=== PATIENT | male | born 1970 | race Caucasian/White ===

== ENCOUNTER 2020-07-08 12:03 | Emergency (ER) | payer SELFPAY ==
--- NOTE | 2020-07-08 12:22 | EDM.PDOC ---
ED HPI GENERAL MEDICAL PROBLEM - General Chief Complaint: Lower Extremity Injury/Pain Stated Complaint: SWOLLEN L FOOT Time Seen by Provider: 07/08/20 12:21 Source of Information: Reports: Patient History Limitations: Reports: No Limitations - History of Present Illness INITIAL COMMENTS - FREE TEXT/NARRATIVE: 50-year-old male presents to the ED with painful left great toe. It came on overnight. He states he had gout in his right great toe about 3 weeks ago which is still hurting badly but not as bad as it was initially. Patient states he got very ill from indomethacin tablets that they put him on very dizzy lightheaded and could not tolerate them. He is therefore currently on no medications.History suggest that he is likely got hypertrophic cardiomyopathy and is seeing cardiology in the near future for repeat echocardiogram on his heart. It is so bad that he cannot tolerate anything touching the left great toe even the sheets of the bedding. Any movement of the MTP joint causes exquisite severe pain. He states he drinks only the occasional beer.Does eat meat almost on a daily basis. Onset: Sudden Onset Date: 07/08/20 (Awoke with swollen red left great) Duration: Hour(s): ( toe and the first MTP joint this morning.), Getting Worse Location: Reports: Lower Extremity, Left (Left) Quality: Reports: Ache ( first MTP joint), Burning, Sharp, Stabbing, Throbbing Severity: Severe Improves with: Reports: Rest (10 out of 10) Worsens with: Reports: Movement Context: Denies: Activity, Exercise, Lifting (Movement or attempt to walk or put a shoe on hurts badly.), Sick Contact, Trauma, Other Associated Symptoms: Reports: Other (He had gout attack in his right first MTP joint 3 weeks ago which remains very swollen with skin sloughing off of the toe due to the severe edema that it causes.) 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 Left Foot Pain Score (Numeric/FACES): 10 - Related Data Allergies Allergy/AdvReac Type Severity Reaction Status Date / Time azithromycin Allergy Rash Verified 07/08/20 12:19 Home Meds: Home Meds Colchicine 0.6 mg PO Q1H #3 capsule 07/08/20 [Rx] Diclofenac Sodium [Voltaren] 75 mg PO BIDMEALS #20 tab.cr 07/08/20 [Rx] oxyCODONE HCl/Acetaminophen [Percocet 5-325 mg Tablet] 1 - 2 each PO Q4H PRN #15 tablet 07/08/20 [Rx] predniSONE [Prednisone] 20 mg PO BID #12 tablet 07/08/20 [Rx] Past Medical History Cardiovascular History: Reports: Other (See Below) (Has some heart problems which for which she is seeing cardiology. The history suggest that what he is describing is hypertrophic cardiomyopathy.) Musculoskeletal History: Reports: Gout Social & Family History - Living Situation & Occupation Living situation: Reports: Single Occupation: Employed Review of Systems - Review of Systems Review Of Systems: See Below Constitutional: Denies: Chills, Diaphoresis, Fever, Weakness, Other Eyes: Reports: No Symptoms Ears: Reports: No Symptoms Nose: Reports: No Symptoms Mouth/Throat: Reports: No Symptoms Respiratory: Reports: Shortness of Breath (Mostly on exertion) Cardiovascular: Reports: Other (Currently being worked up by cardiology for what sounds like developing hypertrophic cardiomyopathy.) GI/Abdominal: Reports: No Symptoms Genitourinary: Reports: No Symptoms Musculoskeletal: Reports: Back Pain, Other (Pain in both great toes in the first MTP joints due to gout. Right started 3 weeks ago left started overnight.) Skin: Reports: Other (And is sloughing off of the right first MTP joint due to severe swelling) Neurological: Reports: No Symptoms ( from 3 weeks ago.) Psychiatric: Reports: No Symptoms ED EXAM, GENERAL - Physical Exam Exam: See Below Exam Limited By: No Limitations General Appearance: Alert, WD/WN, Mild Distress, Other (Temperature is 37.1 degrees with a heart rate of 103. Respiratory is 18 with O2 sats of 98% room air BP 134/89.) Eye Exam: Bilateral Eye: Normal Inspection, PERRL (No scleral icterus or blepharal pallor.) Ears: Normal TMs Throat/Mouth: Normal Inspection, Normal Lips, Normal Teeth, Normal Oropharynx Neck: Normal Inspection, Supple, Non-Tender, Full Range of Motion. No: Carotid Bruit, Lymphadenopathy (L), Lymphadenopathy (R) Respiratory/Chest: No Respiratory Distress, Lungs Clear, No Accessory Muscle Us e, Chest Non-Tender Cardiovascular: Normal Peripheral Pulses, Regular Rate, Rhythm, No Edema, No Gallop, No Murmur, No Rub Peripheral Pulses: 3+: Carotid (L), Carotid (R), Radial (L), Radial (R) Extremities: Other (Patient has marked redness and swelling over the first MTP joint of his right great toe. He states this flared up with a gout attack about 3 weeks ago and the skin is peeling off of the first MTP joint due to the severe edema that it caused. It remains red and moderately tender to palpation.) Neurological: Alert, Oriented ( New onset of gout with redness swelling over the left MTP joint occurred overnight. Any movement of this toe causes exquisite pain at the first MTP joint.), CN II-XII Intact, Normal Cognition Psychiatric: Normal Affect, Normal Mood Skin Exam: Warm, Dry, Intact, Normal Color, Other Course - Vital Signs Last Recorded V/S: Last Vital Signs Temp 37.1 C 07/08/20 12:15 Pulse 103 H 07/08/20 12:15 Resp 18 07/08/20 12:15 BP 134/89 07/08/20 12:15 Pulse Ox 98 07/08/20 12:15 - Radiology Interpretation Free Text/Narrative:: 50-year-old male presents to the ED with acute onset of severe pain in his left great toe in the first MTP joint. Examination shows to be red swollen and exquisitely tender to touch. It came on overnight. He has had gout attack in his right first MTP joint starting 3 weeks ago and it still not settled down completely. Examination reveals gout in both of his first MTP joints. Patient will be treated with colchicine 0.6 mg by mouth 1 every hour for 3 consecutive hours. Voltaren 75 mg by mouth twice daily for the next 10 days. Prednisone 20 mg with breakfast and supper for the next 6 days. Percocet tabs 5\325 mg 1- type II tablets every 4-6 hours necessary for pain relief over the next 2 to 3 days until the anti-inflammatories become effective. Advise he should be 80 to 90% better within 72 hours time. Needs his uric acid level checked next time he has lab work performed. If his uric acid is greater than 7.5 he should consider going on Uloric 40 mg once daily to reduce uric acid formation long- term and prevent gout as well as interstitial nephritis of the kidney. Departure - Departure Time of Disposition: 12:34 Disposition: Home, Self-Care 01 Condition: Fair Clinical Impression: Acute gout Qualifiers: Gout site: toe Encounter type: initial encounter Laterality: left - Discharge Information *PRESCRIPTION DRUG MONITORING PROGRAM REVIEWED*: Not Applicable *COPY OF PRESCRIPTION DRUG MONITORING REPORT IN PATIENT MYLES: Not Applicable Prescriptions: Colchicine 0.6 mg PO Q1H #3 capsule oxyCODONE HCl/Acetaminophen [Percocet 5-325 mg Tablet] 1 - 2 each PO Q4H PRN #15 tablet PRN Reason: pain relief. predniSONE [Prednisone] 20 mg PO BID #12 tablet Diclofenac Sodium [Voltaren] 75 mg PO BIDMEALS #20 tab.cr Instructions: Low-Purine Eating Plan Referrals: PCP,None [Primary Care Provider] - Forms: ED Department Discharge Additional Instructions: Today in regards to new onset of acute gout attack involving your left first MTP joint. Examination reveals chronic inflammation from gout involving the right first MTP joint where your toe attaches to your foot as well. You need to your uric acid level checked in your blood next time you have blood work carried out. Treatment today is colchicine tablet 0.6 mg 1 every hour for 3 consecutive hours which will start to bring the inflammation under the control fairly rapidly. Prednisone 20 mg twice daily with breakfast and supper for the next 6 days. Take 1 is that he should get them now and take 1 before bed tonight. Voltaren 75 mg by mouth twice daily usually with breakfast and supper for the next 10 days to bring the inflammation totally under control so the gout does not come right back. Pain medication Percocet 5/325 mg strength 1 or 2 every 4- 6 hours as needed for pain relief while not operating a motor vehicle or requiring a good deal of focus mentally. Expect marked improvement over the next 48 to 72 hours. Sepsis Event Note (ED) - Evaluation Sepsis Screening Result: No Definite Risk - Focused Exam Vital Signs: Vital Signs Temp Pulse Resp BP Pulse Ox 07/08/20 12:15 37.1 C 103 H 18 134/89 98
== END 2020-07-08 12:52 | disposition home or self-care (01) ==
LOC: JD.ED 12:03
DX: M10.9 Gout, unspecified (principal); Z88.1 Allergy status to other antibiotic agents
CPT/HCPCS: 99283